=== PATIENT | male | born 1990 | race Caucasian/White ===

== ENCOUNTER 2024-06-19 08:26 | Inpatient (IN) | payer MEDICAID, OTHER ==
[~2024-06-19] VITALS: Ht 175.3 cm; Wt 74.9 kg
--- NOTE | 2024-06-19 09:09 | ED.PDOC ---
GI ASSESSMENT HPI Comments 33 year old male presents to the ED with a chief complaint of nausea/vomiting onset last night (06/18/24). Patient states he had 2 beers, ecstasy pill ans shortly after began experiencing diffused abdominal pain, nausea, vomiting, diarrhea. Rates pain 8/10. During assessment it was noticed, patient had an episode of vomiting, saliva with streaks of blood. PMHx asthma. Denies chest pain, shortness of breath, fever, chills. No other symptoms or modifying factors present at this time. Chief Complaint: Nausea/Vomiting Time Seen by MD: 08:35 Reviewed Notes: Medications, Allergies Allergies: Coded Allergies: NO KNOWN ALLERGIES (Unverified , 06/19/24) Information Source: Patient Mode of Arrival: Ambulatory Timing: Hours Duration: Since onset Prehospital treatment: None Quality: Aching Vomitus: Streaking Blood Severity: Moderate Recent: Ingestion of ETOH, Other Recent Hx of: None Pain Location: Diffuse Modifying Factors: Nothing Associated sign and symptoms: Nausea, Vomiting, Diarrhea, Hematemesis, Abdominal Pain Past Medical History PAST MEDICAL HISTORY: Asthma Surgical History: Denies all surgeries Family History Family History: Reviewed,noncontributory to illness, No family hx of Cancer, No family hx of DM, No family hx of Heart davis, No family hx of HTN, No family hx ofKidney davis, No family hx of Liver davis, No family hx of Lung davis, No family hx of Stroke Social History Smoker: Non-Smoker Alcohol: Occasionally Drugs: Other Lives In: Home Constitutional: denies: chills, diaphoresis, fatigue, fever, malaise, sweats, weakness, others EENTM: denies: blurred vision, double vision, ear bleeding, ear discharge, ear drainage, ear pain, ear ringing, eye pain, eye redness, hearing loss, mouth pain, mouth swelling, nasal discharge, nose bleeding, nose congestion, nose pain, photophobia, tearing, throat pain, throat swelling, voice changes, others Respiratory: denies: cough, hemoptysis, orthopnea, SOB at rest, shortness of breath, SOB with excertion, stridor, wheezing, others Cardiovascular: denies: chest pain, dizzy spells, diaphoresis, Dyspnea on exertion, edema, irregular heart beat, left arm pain, lightheadedness, palpitations, PND, syncope, others Gastrointestinal: reports: abdominal pain, diarrhea, nausea, vomiting; denies: abdomen distended, blood streaked bowels, constipated, dysphagia, difficulty swallowing, hematemesis, melena, poor appetite, poor fluid intake, rectal bleeding, rectal pain, others Genitourinary: denies: burning, dysuria, flank pain, frequency, hematuria, incontinence, penile discharge, penile sore, pain, testicle pain, testicle swelling, urgency, others Neurological: denies: dizziness, fainting, headache, left sided numbness, left sided weakness, numbness, paresthesia, pre-existing deficit, right sided numbness, right sided weakness, seizure, speech problems, tingling, tremors, weakness, others Musculoskeletal: denies: back pain, gout, joint pain, joint swelling, muscle pain, muscle stiffness, neck pain, others Integumetry: denies: bruises, change in color, change in hair/nails, dryness, laceration, lesions, lumps, rash, wounds, others Allergic/Immunocompromised: denies: Difficulty Healing, Frequent Infections, Hives, Itching, others Hematologic/Lymphatic: denies: anemia, blood clots, easy bleeding, easy bruising, swollen glands, others Endocrine: denies: excessive hunger, excessive sweating, excessive thirst, excessive urination, flushing, intolerance to cold, intolerance to heat, unexplained weight gain, unexplained weight loss, others Psychiatric: denies: anxiety, bipolar disorder, depression, hopeless, panic disorder, schizophrenia, sleepless, suicidal, others All Other Systems: Reviewed and Negative Physical Exam General Appearance: Moderate Distress, Normal, Other (restless) HEENT: Normal ENT Inspection, Pharynx Normal, TMs Normal Neck: Full Range of Motion, Non-Tender, Normal, Normal Inspection Respiratory: Chest Non-Tender, Lungs Clear, No Accessory Muscle Use, No Respiratory Distress, Normal Breath Sounds Cardiovascular: No Edema, No JVD, No Murmur, No Gallop, Normal Peripheral Pulses, Regular Rate/Rhythm Breast Exam: Deferred Gastrointestinal: No Organomegaly, Non Tender, No Pulsatile Mass, Normal Bowel Sounds, Soft Genitalia: Deferred Pelvic: Deferred Rectal: Deferred Extremities: No calf tenderness, Normal capillary refill, Normal inspection, Normal range of motion, Non-tender, No pedal edema Musculoskeletal : Apperance: Normal Neurologic: Alert, recordings librarian II-XII nml as Tested, No Motor Deficits, Normal Affect, Normal Mood, No Sensory Deficits Cerebellar Function: Normal Reflexes: Normal Skin: Dry, Normal Color, Warm Lymphatic: No Adenopathy Was a procedure done? Was a procedure done?: No GI differential Dx Differential Diagnosis: Appendicitis, Bowel Obstruction, Cholangitis, Cholecystitis, Constipation, Esophageal rupture, Esophagitis, Gastritis/PUD, Gastroenteritis, GI hemorrhage, Hernia, Hepatitis, Inflammatory BD, Ischemic Bowel, Pancreatitis, Dehydration, Electrolyte Imbalance, Food Poisoning, Viral, Hypovolemia, Impaction, Malnutrition, Esophageal Varicies, Stress Ulcer X-Ray, Labs, Meds, VS Vital Signs Date Time Temp Pulse Resp B/P (MAP) Pulse Ox O2 Delivery O2 Flow Rate FiO2 06/19/24 11:00 74 16 114/70 (85) 98 06/19/24 09:20 97.9 61 18 103/69 (80) 97 97.9 06/19/24 09:20 103 16 98 Room Air* 0 21 06/19/24 08:36 98.1 98 17 117/72 (87) 100 98.1 Lab Test 06/19/24 08:52 06/19/24 08:45 Range/Units White Blood Count 16.9 H 4.4-10.8 10^3/uL Red Blood Count 5.32 4.5-5.90 10^6/uL Hemoglobin 14.9 13.5-17.5 g/dL Hematocrit 44.6 41.0-53.0 % Mean Corpuscular Volume 83.9 80.0-100.0 fL Mean Corpuscular Hemoglobin 28.0 28.0-32.0 pg Mean Corpuscular Hemoglobin Concent 33.3 32.0-36.0 g/dL Red Cell Distribution Width 12.9 11.8-14.3 % Platelet Count 246 140-450 10^3/uL Mean Platelet Volume 9.7 6.9-10.8 fL Neutrophils (%) (Auto) 93.1 H 37.0-80.0 % Lymphocytes (%) (Auto) 3.5 L 10.0-50.0 % Monocytes (%) (Auto) 3.4 0.0-12.0 % Eosinophils (%) (Auto) 0.0 0.0-7.0 % Basophils (%) (Auto) 0.0 0.0-2.0 % Neutrophils # (Auto) 15.8 H 1.6-8.6 10 ^3/uL Lymphocytes # (Auto) 0.6 0.4-5.4 10 ^3/uL Monocytes # (Auto) 0.6 0-1.3 10 ^3/uL Eosinophils # (Auto) 0 0-0.8 10 ^3/uL Basophils # (Auto) 0 0-0.2 10 ^3/uL Nucleated Red Blood Cells 0.0 % Sodium Level 141 136-145 mmol/L Potassium Level 3.2 L 3.5-5.1 mmol/L Chloride Level 106 98-107 mmol/L Carbon Dioxide Level 17 L 20-31 mmol/L Anion Gap 18 H 5-15 Blood Urea Nitrogen 13 9-23 mg/dL Creatinine 1.11 0.700-1.30 mg/dL Glomerular Filtration Rate Calc 89 >90 mL/min BUN/Creatinine Ratio 11.7 10.0-20.0 Serum Glucose 192 H 74-106 mg/dL Calcium Level 10.8 H 8.7-10.4 mg/dL Lipase 34 12-53 U/L POC Glucose 192 H 70-106 mg/dl Current Medications Medications (Trade) Dose Ordered Sig/Caprice Route Start Time Stop Time Status Last Admin Ondansetron HCl (Zofran) 4 mg ONCE ONCE IV 06/19/24 08:45 06/19/24 08:46 DC 06/19/24 09:13 Sodium Chloride 1,000 ml @ 1,000 mls/hr Q1H ONCE IV 06/19/24 08:45 06/19/24 09:44 DC 06/19/24 09:13 Pantoprazole Sodium (Protonix) 40 mg ONCE ONCE IV 06/19/24 08:45 06/19/24 08:46 DC 06/19/24 09:13 Potassium Chloride (Klor-Con Tablet) 40 meq ONCE ONCE PO 06/19/24 11:30 06/19/24 11:45 DC 06/19/24 11:[address] [address] Ph: [phone] DIAGNOSTIC IMAGING Diagnostic Imaging Report : [id number] Signed PATIENT: BHARGAVI LÓPEZ ACCT: [id number] UNIT: [id number] : 1990 LOC: ER ROOM / BED: / AGE / SEX: 33 / M ADM STATUS: REG ER SERVICE ORDERING PHYSICIAN: TING SPEARS MD PROCEDURE(s): CXRP - CHEST PORTABLE REASON: vomiting ORDER NUMBER(s): [id number], ACCESSION NUMBER(s): [id number] EXAM: XR Chest, 1 View CLINICAL INDICATION: vomiting TECHNIQUE: Frontal view of the chest. COMPARISON: None FINDINGS: LUNGS AND PLEURAL SPACES: Unremarkable. No consolidation. No pneumothorax. HEART: Unremarkable. No cardiomegaly. MEDIASTINUM: Unremarkable. Normal mediastinal contour. BONES/JOINTS: Unremarkable. No acute fracture. OTHER FINDINGS: . None. IMPRESSION: No acute cardiopulmonary process. ATED BY: RAJI JACOBS MD DICTATED DATE/TIME: 06/19/24925 SIGNED BY: RAJI JACOBS MD SIGNED DATE/TIME: 06/19/24925 CC: Time of 1ST Reevaluation: 09:05 Reevaluation 1ST: Unchanged Patient Education/Counseling: Diagnosis, Treatment, Prognosis, Need For Follow Up Family Education/Counseling: No Family Present Assigned to Dr. pt is feeling improved. he states that he has a history of gastritis. he will stop drinking. he reports he has never tried drugs before yesterday, when he tried escasy and alcohol. he only drinks rarely. pt would like to go home,. his leukocytosis is likely due to demargination. ct is unremarkable Additional Information The following tests were ordered, and results were reviewed by me: CBC, BMP, LIPASE, EKG, XY CHEST Additional Information was gathered from interviewing the following independent historians: NEIGHBOR I reviewed and agreed with the following test results read by other providers: XY CHEST I discussed treatment and results with medical personnel and: Patient Departure 1 Departure Time of Disposition: 12:47 Impression: Primary Impression: Gastritis Qualified Codes: K29.20 - Alcoholic gastritis without bleeding Additional Impression: Substance abuse Disposition: HOME / SELF CARE / HOMELESS Condition: Good e-Prescriptions Ondansetron Odt 4MG Tab (ZOFRAN PO) 4 Mg Tb 4 MG PO Q4HP PRN, #10 TAB ODT TAB-DISSOLVE IN MOUTH, THEN SWALLOW Prov: TING SPEARS MD 06/19/24 Pantoprazole Sodium Sesquihydr (Protonix) 40 Mg Tab 40 MG PO DAILY, #30 TAB Prov: TING SPEARS MD 06/19/24 Discharged With: Self Critical Care Note Critical Care Time?: Yes (55 min-critical care time only) Critical care comment: Due to concerns for patients condition deteriorating, the care required my highest level of attention and readiness to intervene. I assessed the patient, reviewed the medical records, ordered the appropriate tests and treatments, then reassessed for results and responsiveness. I communicated with medical personnel and consultants and formulated a plan of care. Total critical care time excludes any procedures Stability Stability form required: No I personally scribed for TING SPEARS MD ([email or web address]) on 06/19/24 at 09:09. Electronically submitted by Pat Monge ([email or web address]). I personally scribed for TING SPEARS MD ([email or web address]) on 06/19/24 at 10:08. Electronically submitted by Pat Monge ([email or web address]). TING SPEARS MD Jun 19, 2024 09:09
[2024-06-19] MEDS: SODIUM CHLORIDE 0.9% 1,000 ML IV ONE (09:13)
[2024-06-19] MEDS: ONDANSETRON HCL 4 MG/2 ML VIAL IV ONE ×2 (09:13→12:55)
[2024-06-19] MEDS: PANTOPRAZOLE 40 MG/10 ML VIAL INJ IV ONE (09:13)
[2024-06-19 09:20] VITALS: PULSE 103; RESP 16; O2SAT 98
[2024-06-19 09:20] LABS: Chloride 106 mmol/L (98-107); Sodium 141 mmol/L (136-145)
[2024-06-19 09:21] LABS: Anion Gap 18 (5-15)
[2024-06-19 09:26] LABS: BUN/Creatinine Ratio 11.7 (10.0-20.0); Blood Urea Nitrogen 13 mg/dL (9-23); Calcium 10.8 mg/dL (8.7-10.4); Carbon Dioxide 17 mmol/L (20-31); Potassium 3.2 mmol/L (3.5-5.1)
[2024-06-19 09:27] LABS: Glucose 192 mg/dL (74-106)
--- NOTE | 2024-06-19 09:28 | DVH ---
EXAM: XR Chest, 1 View CLINICAL INDICATION: vomiting TECHNIQUE: Frontal view of the chest. COMPARISON: None FINDINGS: LUNGS AND PLEURAL SPACES: Unremarkable. No consolidation. No pneumothorax. HEART: Unremarkable. No cardiomegaly. MEDIASTINUM: Unremarkable. Normal mediastinal contour. BONES/JOINTS: Unremarkable. No acute fracture. OTHER FINDINGS: . None. IMPRESSION: No acute cardiopulmonary process.
[2024-06-19 10:12] LABS: Lipase 34 U/L (12-53)
[2024-06-19 10:36] LABS: Basophils # (auto) 0 10 ^3/uL (0-0.2); Eosinophils # (auto) 0 10 ^3/uL (0-0.8); Hematocrit 44.6 % (41.0-53.0); Hemoglobin 14.9 g/dL (13.5-17.5); Lymphocytes # (auto) 0.6 10 ^3/uL (0.4-5.4); Lymphocytes % (auto) 3.5 % (10.0-50.0); Mean Corpuscular Hgb Conc. 33.3 g/dL (32.0-36.0); Mean Corpuscular Volume 83.9 fL (80.0-100.0); Monocytes # (auto) 0.6 10 ^3/uL (0-1.3); Monocytes % (auto) 3.4 % (0.0-12.0); Neutrophils # (auto) 15.8 10 ^3/uL (1.6-8.6); Neutrophils % (auto) 93.1 % (37.0-80.0); Platelet Count (auto) 246 10^3/uL (140-450); Red Blood Cells 5.32 10^6/uL (4.5-5.90); Red Cell Distribution Width 12.9 % (11.8-14.3); White Blood Cell 16.9 10^3/uL (4.4-10.8)
--- NOTE | 2024-06-19 11:36 | DVH ---
CT CT AB PEL WO CON-NO ORAL OR IV INDICATION: pain, vomiting EXAM DATE: 06/19/2024 10:52 AM COMPARISON: None RADIATION DOSE: CTDIvol: 10.09 mGy, DLP: 503.33 mGy*cm PROCEDURE: Helical CT images were obtained of the abdomen and pelvis without IV contrast Sagittal and coronal reconstructions are provided. ORAL CONTRAST: None. ADDITIONAL IMAGES / REFORMATS: None All C T scans at this medical facility are performed using dose modulation techniques as appropriate to a p erformed exam including the following: Automated exposure control was utilized; adjustment of the MA and/or KV according to patient size; and use of iterative reconstruction technique. FINDINGS: LUNG BASE: 1.0 cm cavitary right lower pulmonary nodule. LIVER: Normal. GALLBLADDER AND BILIARY TREE: No calcified gallstones. Normal caliber wall. No intra- or extrahepatic biliary ductal dilation. PANCREAS: Normal. SPLEEN: Normal. BOWEL: Normal. Appendix is prominent in diameter but normal. ADRENALS: Normal. KIDNEYS AND URETER: Normal. BLADDER: Normal. REPRODUCTIVE ORGANS: Normal. LYMPH NODES:No lymphadenopathy. PERITONEUM: No ascites or free air. No other fluid collection. VESSELS: Scattered atherosclerotic calcifications are noted. RETROPERITONEUM: Normal. ABDOMINAL WALL: Normal. BONES: Scattered osseous degenerative changes are noted. IMPRESSION: No acute intraabdominal abnormality. 1.0 cm cavitary right lower pulmonary nodule could be pneumonia.
[2024-06-19] MEDS: POTASSIUM CHL 20 Meq TABLET PO ONE (11:49)
[2024-06-19] MEDS ORDERED: ZOFR4T PO (12:48)
[2024-06-19] MEDS ORDERED: PANT40TA2 PO (12:48)
[2024-06-19] MEDS: SODIUM CHLORIDE 0.9% 1,000 ML IV SCH (15:30)
[2024-06-19] MEDS ORDERED: MORPHINE SULFATE INJ 2 MG/ml SYRG IV PRN (15:30)
[2024-06-19] MEDS ORDERED: DEXTROSE (50%) 50ML SYRG IV PRN (15:30)
[2024-06-19] MEDS ORDERED: ACETAMINOPHEN 325 MG TAB PO PRN (15:30)
[2024-06-19] MEDS ORDERED: IPRATROPIUM BROM 0.5 MG/2.5ML INH SOL NEB PRN (15:30)
[2024-06-19] MEDS ORDERED: ALBUTEROL SULF 2.5 MG/0.5ML(0.5%) NEB SOLN NEB PRN (15:30)
[2024-06-19] MEDS ORDERED: HYDROcodone-ACET 5/325MG TAB PO PRN (15:30)
--- NOTE | 2024-06-19 15:55 | DVHHP2 ---
History of Present Illness Reason for Visit: Abdominal pain History of Present Illness Ángel Balderrama is a 33-year-old male with past medical history of asthma, adenoid removal, left leg surgery, and bilateral ankle surgery who presents to the ED for abdominal pain with nausea, vomiting, and diarrhea x1 day. Patient reports that the emesis is dark bloody and started last night. He also reports the pain is 8/10 constant and aching. Patient reported that he drank 2-1/2 beers last night with an ecstasy pill called Michael. Patient reports that he is from [facility] and currently staying in an AirBNB and next week he states that he will move into his new apartment. Patient also reports that he drinks oc casionally and smokes THC as well as use ecstasy. Patient denies any chest pain, recent trauma or injury, recent illnesses, fever chills, lightheadedness, weakness, dizziness, headache, chest pain, shortness of breath, tingling, numbness, paresthesia. When I asked the patient about his diarrhea what color it was he states that he did not look. Pulmonary: Asthma Past Surgical History: Other (Adenoid removal, left leg surgery, and bilateral ankle surgery) Family History: Cancer, Other (Grandfather with throat cancer) Smoke: <1 pack per day (THC) ALCOHOL: occassional Drugs: Other (Ecstasy) Lives: Alone Domestic Violence: Neg Review of Systems Gastrointestinal: Nausea, Vomiting, Abdominal Pain, Diarrhea, Other (Hematemesis) Allergies: Coded Allergies: NO KNOWN ALLERGIES (Unverified , 06/19/24) Medications Current Medications Medications Dose Ordered Sig/Caprice Route Start Time Stop Time Status Last Admin Dose Admin Sodium Chloride 1,000 ml @ 100 mls/hr Q10H IV 06/19/24 15:30 UNV Diagnostic Test (Pha) 1 strip ACHS 06/19/24 17:00 UNV Insulin Human Regular ACHS SC 06/19/24 17:00 UNV Dextrose 50 ml UD PRN IV 06/19/24 15:30 UNV Piperacillin Sod/ Tazobactam Sod 100 ml @ 25 mls/hr Q8HR IV 06/19/24 22:00 UNV Acetaminophen/ Hydrocodone Bitart 1 tab Q4HP PRN PO 06/19/24 15:30 UNV Ondansetron HCl 4 mg Q4HP PRN IV 06/19/24 15:30 UNV Acetaminophen 650 mg Q6HP PRN PO 06/19/24 15:30 UNV Morphine Sulfate 2 mg Q4HPRN PRN IV 06/19/24 15:30 UNV Albuterol 2.5 mg Q4HPRN PRN NEB 06/19/24 15:30 UNV Ipratropium [place] 0.5 mg Q4HPRN PRN NEB 06/19/24 15:30 UNV Exam Vital Signs Vital Signs Date Time Temp Pulse Resp B/P (MAP) Pulse Ox O2 Delivery O2 Flow Rate FiO2 06/19/24 14:00 70 18 136/63 (87) 96 06/19/24 09:20 97.9 97.9 06/19/24 09:20 Room Air* 0 21 General Appearance: Alert, Oriented X3, Cooperative, No acute distress HEENT: Atraumatic, PERRLA, EOMI, Mucous membr. moist/pink Respiratory: Normal air movement Cardiovascular: Normal S1, Normal S2 Abdominal: Soft Extremities: No cyanosis, No edema Skin: No significant lesion Neuro: Normal speech, Strength at 5/5 X4 ext, Normal tone, Sensation intact Psych/Mental Status: Mental status NL, Mood NL Labs/Xrays Labs Test 06/19/24 08:52 06/19/24 08:45 Range/Units White Blood Count 16.9 H 4.4-10.8 10^3/uL Red Blood Count 5.32 4.5-5.90 10^6/uL Hemoglobin 14.9 13.5-17.5 g/dL Hematocrit 44.6 41.0-53.0 % Mean Corpuscular Volume 83.9 80.0-100.0 fL Mean Corpuscular Hemoglobin 28.0 28.0-32.0 pg Mean Corpuscular Hemoglobin Concent 33.3 32.0-36.0 g/dL Red Cell Distribution Width 12.9 11.8-14.3 % Platelet Count 246 140-450 10^3/uL Mean Platelet Volume 9.7 6.9-10.8 fL Neutrophils (%) (Auto) 93.1 H 37.0-80.0 % Lymphocytes (%) (Auto) 3.5 L 10.0-50.0 % Monocytes (%) (Auto) 3.4 0.0-12.0 % Eosinophils (%) (Auto) 0.0 0.0-7.0 % Basophils (%) (Auto) 0.0 0.0-2.0 % Neutrophils # (Auto) 15.8 H 1.6-8.6 10 ^3/uL Lymphocytes # (Auto) 0.6 0.4-5.4 10 ^3/uL Monocytes # (Auto) 0.6 0-1.3 10 ^3/uL Eosinophils # (Auto) 0 0-0.8 10 ^3/uL Basophils # (Auto) 0 0-0.2 10 ^3/uL Nucleated Red Blood Cells 0.0 % Sodium Level 141 136-145 mmol/L Potassium Level 3.2 L 3.5-5.1 mmol/L Chloride Level 106 98-107 mmol/L Carbon Dioxide Level 17 L 20-31 mmol/L Anion Gap 18 H 5-15 Blood Urea Nitrogen 13 9-23 mg/dL Creatinine 1.11 0.700-1.30 mg/dL Glomerular Filtration Rate Calc 89 >90 mL/min BUN/Creatinine Ratio 11.7 10.0-20.0 Serum Glucose 192 H 74-106 mg/dL Calcium Level 10.8 H 8.7-10.4 mg/dL Lipase 34 12-53 U/L POC Glucose 192 H 70-106 mg/dl CT CT AB PEL WO CON-NO ORAL OR IV INDICATION: pain, vomiting EXAM DATE: 06/19/2024 10:52 AM COMPARISON: None RADIATION DOSE: CTDIvol: 10.09 mGy, DLP: 503.33 mGy*cm PROCEDURE: Helical CT images were obtained of the abdomen and pelvis without IV contrast Sagittal and coronal reconstructions are provided. ORAL CONTRAST: None. ADDITIONAL IMAGES / REFORMATS: None All CT scans at this medical facility are performed using dose modulation techniques as appropriate to a performed exam including the following: Automated exposure control was utilized; adjustment of the MA and/or KV according to patient size; and use of iterative reconstruction technique. FINDINGS: LUNG BASE: 1.0 cm cavitary right lower pulmonary nodule. LIVER: Normal. GALLBLADDER AND BILIARY TREE: No calcified gallstones. Normal caliber wall. No intra- or extrahepatic biliary ductal dilation. PANCREAS: Normal. SPLEEN: Normal. BOWEL: Normal. Appendix is prominent in diameter but normal. ADRENALS: Normal. KIDNEYS AND URETER: Normal. BLADDER: Normal. REPRODUCTIVE ORGANS: Normal. LYMPH NODES:No lymphadenopathy. PERITONEUM: No ascites or free air. No other fluid collection. VESSELS: Scattered atherosclerotic calcifications are noted. RETROPERITONEUM: Normal. ABDOMINAL WALL: Normal. BONES: Scattered osseous degenerative changes are noted. IMPRESSION: No acute intraabdominal abnormality. 1.0 cm cavitary right lower pulmonary nodule could be pneumonia. EXAM: XR Chest, 1 View CLINICAL INDICATION: vomiting TECHNIQUE: Frontal view of the chest. COMPARISON: None FINDINGS: LUNGS AND PLEURAL SPACES: Unremarkable. No consolidation. No pneumothorax. HEART: Unremarkable. No cardiomegaly. MEDIASTINUM: Unremarkable. Normal mediastinal contour. BONES/JOINTS: Unremarkable. No acute fracture. OTHER FINDINGS: . None. IMPRESSION: No acute cardiopulmonary process. Assessment/Plan Assessment/Plan Assessment Intractable back pain with nausea and vomiting Rule out GI bleed Hematemesis Hypokalemia Leukocytosis rule out sepsis 1.0 cm cavitary right lower pulmonary nodule could be pneumonia. Hyperglycemia History of asthma History of adenoid removal History of left leg surgery History of bilateral ankle surgery Plan Admit to [facility] Clear liquids IV antibiotics-ceftriaxone + Zosyn Replete lytes Hemoglobin A1c ISS and Accu-Cheks ESR Lactic Blood cultures and urine cultures CT abdomen and pelvis noted Antiemetics PPIs NS 1 L given ED Chest x-ray EKG Lipase UA IV fluids DVT prophylaxis- SCDs Duo nebs Rounding team to decide if Pulmonary consult warranted for possible nodule PUD prophylaxis Discussed plan of care with patient and nurse Home medications reconciled Plan discussed with: Patient My Orders Orders - SERA BURROUGHS [employer] Procedure Category Date Status Time * [facility] [employer] Supervisor CONS 06/19/24 Transmitted 15:29 Sodium Chloride 0.9% PHA 06/19/24 Logged 15:30 Hemoglobin A1c LAB 06/19/24 Transmitted 15:29 Glucose Blood PHA 06/19/24 Logged (Accu-Chek Comfort 17:00 Insulin R (Human) PHA 06/19/24 Logged (Insulin R) 17:00 Dextrose 50% Syringe PHA 06/19/24 Logged 15:30 Piperacillin-Tazob PHA 06/19/24 Logged 3.375gm (Zosyn 3.375g 22:00 Piperacillin-Tazob PHA 06/19/24 Logged 3.375gm (Zosyn 3.375g 15:30 Urinalysis LAB 06/19/24 Transmitted 15:29 Stool Occult Blood LAB 06/19/24 Transmitted 15:29 Clear Liq Diet DIET 06/19/24 Transmitted Dinner Admit ADMIT 06/19/24 Transmitted 15:29 Allergies VAL 06/19/24 In Process 15:29 Code Status CODE 06/19/24 Transmitted 15:29 Hydrocodone-Acet PHA 06/19/24 Transmitted 5/325mg Tab ([place] 15:30 Ondansetron Hcl PHA 06/19/24 Transmitted (Zofran) 15:30 Complete Blood Count LAB 06/20/24 Verified 04:00 Comprehensive LAB 06/20/24 Verified Metabolic Panel 04:00 Acetaminophen Tablet PHA 06/19/24 Transmitted (Tylenol Tablet) 15:30 Morphine Sulfate PHA 06/19/24 Transmitted Injection 15:30 Sequential VAL 06/19/24 In Process Compression Device Albuterol Medneb PHA 06/19/24 Transmitted (Ventolin Medneb) 15:30 Ipratropium Medneb PHA 06/19/24 Transmitted (Atrovent Medneb) 15:30 Date of Service: Jun 19, 2024 Billing Provider: SERA BURROUGHS Common Visit Codes: 03233-KOGARIZ INP/OBS CARE (HIGH) SERA BURROUGHS Jun 19, 2024 15:55
--- NOTE | 2024-06-19 16:21 | DVHINCON2 ---
Date of service: Jun 19, 2024 Referring Physician Reggie Reason for Consultation Abdominal pain Nausea vomiting Hematemesis History of Present Illness Patient is a 33-year-old male with no significant past medical history other than gastritis admitted with nausea, vomiting, abdominal pain and blood-streaked emesis. Patient has a history of gastritis. Last had an endoscopy several months ago. He denies any fevers or chills. He has had weight loss. Patient states that he took one pill of ecstasy and had two beers. He has been losing weight as he has not been eating. GI consultation was obtained for hematemesis Past Medical History As above Past Surgical History Denies Family History No gastrointestinal diseases or malignancies Social History Alcohol and drug use see HPI Allergies: Coded Allergies: NO KNOWN ALLERGIES (Unverified , 06/19/24) Home Meds Active Scripts Ondansetron Odt 4MG Tab (ZOFRAN PO) 4 Mg Tb, 4 MG PO Q4HP PRN, #10 TAB ODT TAB-DISSOLVE IN MOUTH, THEN SWALLOW Prov:TING SPEARS MD 06/19/24 Pantoprazole Sodium Sesquihydr (Protonix) 40 Mg Tab, 40 MG PO DAILY, #30 TAB Prov:TING SPEARS MD 06/19/24 Current Medications Current Medications Medications (Trade) Dose Ordered Sig/Caprice Route PRN Reason Start Time Stop Time Status Last Admin Sodium Chloride 1,000 ml @ 100 mls/hr Q10H IV 06/19/24 15:30 Diagnostic Test (Pha) (Accu-Chek Comfort Curve T) 1 strip ACHS 06/19/24 17:00 Insulin Human Regular (InsuLIN R) ACHS SC 06/19/24 17:00 Dextrose 50 ml UD PRN IV Blood Sugar LESS THAN 60 06/19/24 15:30 Piperacillin Sod/ Tazobactam Sod 100 ml @ 25 mls/hr Q8HR IV 06/19/24 22:00 UNV Acetaminophen/ Hydrocodone Bitart ([place] 5/325MG Tab) 1 tab Q4HP PRN PO MODERATE PAIN (4-6 PAIN SCALE) 06/19/24 15:30 Ondansetron HCl (Zofran) 4 mg Q4HP PRN IV NAUSEA / VOMITING 06/19/24 15:30 Acetaminophen (Tylenol Tablet) 650 mg Q6HP PRN PO PAIN SCALE 1-3 OR TEMP>100.4 06/19/24 15:30 Morphine Sulfate 2 mg Q4HPRN PRN IV SEVERE PAIN (7-10 PAIN SCALE) 06/19/24 15:30 Albuterol (Ventolin Medneb) 2.5 mg Q4HPRN PRN NEB SHORTNESS OF BREATH 06/19/24 15:30 Ipratropium [place] (Atrovent Medneb) 0.5 mg Q4HPRN PRN NEB SHORTNESS OF BREATH 06/19/24 15:30 Pantoprazole Sodium (Protonix Tablet) 40 mg DAILY PO 06/20/24 10:00 Ceftriaxone Sodium 50 ml @ 100 mls/hr DAILY@ IV 06/20/24 09:00 UNV Review of Systems 12 point review of systems as per HPI Vital Signs Vital Signs Date Time Temp Pulse Resp B/P (MAP) Pulse Ox O2 Delivery O2 Flow Rate FiO2 06/19/24 14:00 70 18 136/63 (87) 96 06/19/24 09:20 97.9 97.9 06/19/24 09:20 Room Air* 0 21 Physical Exam General: Alert and oriented x4 no distress HEENT: NC/AT EOMI PERRLA O/P clear Heart: Regular rate and rhythm Abdomen: Soft nontender nondistended Extremity: No clubbing cyanosis or edema Labs/Diagnostic Data Labs Test 06/19/24 08:52 06/19/24 08:45 Range/Units White Blood Count 16.9 H 4.4-10.8 10^3/uL Red Blood Count 5.32 4.5-5.90 10^6/uL Hemoglobin 14.9 13.5-17.5 g/dL Hematocrit 44.6 41.0-53.0 % Mean Corpuscular Volume 83.9 80.0-100.0 fL Mean Corpuscular Hemoglobin 28.0 28.0-32.0 pg Mean Corpuscular Hemoglobin Concent 33.3 32.0-36.0 g/dL Red Cell Distribution Width 12.9 11.8-14.3 % Platelet Count 246 140-450 10^3/uL Mean Platelet Volume 9.7 6.9-10.8 fL Neutrophils (%) (Auto) 93.1 H 37.0-80.0 % Lymphocytes (%) (Auto) 3.5 L 10.0-50.0 % Monocytes (%) (Auto) 3.4 0.0-12.0 % Eosinophils (%) (Auto) 0.0 0.0-7.0 % Basophils (%) (Auto) 0.0 0.0-2.0 % Neutrophils # (Auto) 15.8 H 1.6-8.6 10 ^3/uL Lymphocytes # (Auto) 0.6 0.4-5.4 10 ^3/uL Monocytes # (Auto) 0.6 0-1.3 10 ^3/uL Eosinophils # (Auto) 0 0-0.8 10 ^3/uL Basophils # (Auto) 0 0-0.2 10 ^3/uL Nucleated Red Blood Cells 0.0 % Sodium Level 141 136-145 mmol/L Potassium Level 3.2 L 3.5-5.1 mmol/L Chloride Level 106 98-107 mmol/L Carbon Dioxide Level 17 L 20-31 mmol/L Anion Gap 18 H 5-15 Blood Urea Nitrogen 13 9-23 mg/dL Creatinine 1.11 0.700-1.30 mg/dL Glomerular Filtration Rate Calc 89 >90 mL/min BUN/Creatinine Ratio 11.7 10.0-20.0 Serum Glucose 192 H 74-106 mg/dL Hemoglobin A1c 5.2 <5.7 % A1C Calcium Level 10.8 H 8.7-10.4 mg/dL Lipase 34 12-53 U/L POC Glucose 192 H 70-106 mg/dl IMPRESSION: No acute intraabdominal abnormality. 1.0 cm cavitary right lower pulmonary nodule could be pneumonia. Assessment 1. Abdominal pain 2. Nausea and vomiting 3. Blood streaked emesis Problems(with codes): (1) Substance abuse (2) Gastritis (3) Leukocytosis (4) Intractable nausea and vomiting Plan/Recommendation 1. Antiemetics 2. Clear liquid diet as tolerated 3. Supportive care 4. Proton pump inhibitor therapy 5. Hold off on EGD at this time Plan discussed with: Patient GONZALEZ GAN MD Jun 19, 2024 16:21
[2024-06-19] MEDS: PIPERACILLIN-TAZOB 3.375GM 100 ML IV ONE (16:42)
[2024-06-19] MEDS: InsuLIN REG 1unit/0.01ml Soln (100units/ml) SC SCH (17:00)
[2024-06-19] MEDS: cefTRIAXone 1GM/50ML D5W 50 ML IV ONE (17:03)
[2024-06-19] MEDS: ACCU-CHEK COMFORT CURVE STRIP VI SCH (17:26)
[2024-06-19] MEDS: ONDANSETRON HCL 4 MG/2 ML VIAL IV PRN (17:35)
[2024-06-19 17:41] LABS: Erythrocyte Sedimentation Rate 3 mm/hr (0-20)
[2024-06-19 19:28] VITALS: PULSE 64; RESP 16; O2SAT 95
[2024-06-19 22:00] VITALS: PULSE 58; RESP 16; O2SAT 98
[2024-06-19 22:07] VITALS: BP 128/68; PULSE 67; RESP 18; TEMP 98.9; O2SAT 98
[2024-06-19 22:18] VITALS: PULSE 67; RESP 18; O2SAT 98
[2024-06-19 22:24] VITALS: BP 128/68; PULSE 72; RESP 16; TEMP 98.9; O2SAT 100
[2024-06-19] MEDS: PIPERACILLIN-TAZOB 3.375GM 100 ML IV SCH (22:25)
[2024-06-19 23:09] LABS: Urine Bacteria None Seen /hpf (None Seen)
[2024-06-19 23:18] LABS: Urine Blood Negative /uL (Negative); Urine Clarity Clear (Clear); Urine Color Yellow (Yellow); Urine Protein, UAD TRACE (Negative); Urine Specific Gravity 1.032 (1.001-1.035); Urine Squamous Epithelial Cell None Seen /hpf (<5); Urine Urobilinogen Normal (Negative); Urine WBC 1 /HPF (0-3); Urine pH 6.5 (5.0-9.0)
[2024-06-20] VITALS (7 sets, daily range): BP systolic 103–123; BP diastolic 55–65; PULSE 51–81; RESP 16–20; TEMP 98–98.2; O2SAT 97–99
[2024-06-20 07:17] LABS: Basophils # (auto) 0 10 ^3/uL (0-0.2); Basophils % (auto) 0.1 % (0.0-2.0); Eosinophils # (auto) 0 10 ^3/uL (0-0.8); Hematocrit 40.9 % (41.0-53.0); Hemoglobin 13.7 g/dL (13.5-17.5); Lymphocytes # (auto) 1.2 10 ^3/uL (0.4-5.4); Lymphocytes % (auto) 6.9 % (10.0-50.0); Mean Corpuscular Hemoglobin 28.4 pg (28.0-32.0); Mean Corpuscular Hgb Conc. 33.5 g/dL (32.0-36.0); Mean Corpuscular Volume 84.5 fL (80.0-100.0); Monocytes # (auto) 1.5 10 ^3/uL (0-1.3); Monocytes % (auto) 8.4 % (0.0-12.0); Neutrophils # (auto) 14.9 10 ^3/uL (1.6-8.6); Neutrophils % (auto) 84.6 % (37.0-80.0); Nucleated Red Blood Cells % 0.1 %; Platelet Count (auto) 209 10^3/uL (140-450); Red Blood Cells 4.83 10^6/uL (4.5-5.90); Red Cell Distribution Width 13.2 % (11.8-14.3); White Blood Cell 17.6 10^3/uL (4.4-10.8)
[2024-06-20 07:45] LABS: Alanine Aminotransferase 17 U/L (7-40); Albumin 4.6 g/dL (3.2-4.8); Alkaline Phosphatase 47 U/L (46-116); Anion Gap 13 (5-15); Aspartate Aminotransferase 22 U/L (13-40); BUN/Creatinine Ratio 11.3 (10.0-20.0); Bilirubin, Total 1.1 mg/dL (0.2-1.0); Blood Urea Nitrogen 12 mg/dL (9-23); Carbon Dioxide 25 mmol/L (20-31); Chloride 106 mmol/L (98-107); Sodium 144 mmol/L (136-145); Total Protein 7.3 g/dL (5.7-8.2)
[2024-06-20 07:48] LABS: Glucose 129 mg/dL (74-106); Potassium 3.4 mmol/L (3.5-5.1)
[2024-06-20] MEDS: PANTOPRAZOLE 40 MG TAB PO SCH (10:36)
[2024-06-20] MEDS: cefTRIAXone 1GM/50ML D5W 50 ML IV SCH (10:37)
--- NOTE | 2024-06-20 15:38 | PRN ---
Misceleneous Note Note Note June 10, 2024 Subjective: Patient is not having any bleeding here he is feeling better. Current Medications Medications (Trade) Dose Ordered Sig/Caprice Route PRN Reason Start Time Stop Time Status Last Admin Diagnostic Test (Pha) (Accu-Chek Comfort Curve T) 1 strip ACHS 06/19/24 17:00 06/20/24 06:18 Insulin Human Regular (InsuLIN R) ACHS SC 06/19/24 17:00 Piperacillin Sod/ Tazobactam Sod 100 ml @ 25 mls/hr Q8HR IV 06/19/24 22:00 06/20/24 14:01 Pantoprazole Sodium (Protonix Tablet) 40 mg DAILY PO 06/20/24 10:00 06/20/24 10:36 Ceftriaxone Sodium 50 ml @ 100 mls/hr DAILY@09 IV 06/20/24 09:00 06/20/24 10:37 Vital Signs Date Time Temp Pulse Resp B/P (MAP) Pulse Ox O2 Delivery O2 Flow Rate FiO2 06/20/24 13:00 98.0 58 20 112/65 (81) 98 98.0 06/20/24 08:00 Room Air* 0 21 Physical exam : Alert and oriented x4 Regular rate and rhythm Soft nontender nondistended abdomen No clubbing cyanosis or edema Labs Test 06/20/24 06:51 06/20/24 06:17 06/19/24 22:32 06/19/24 16:14 Range/Units White Blood Count 17.6 H 4.4-10.8 10^3/uL Red Blood Count 4.83 4.5-5.90 10^6/uL Hemoglobin 13.7 13.5-17.5 g/dL Hematocrit 40.9 L 41.0-53.0 % Mean Corpuscular Volume 84.5 80.0-100.0 fL Mean Corpuscular Hemoglobin 28.4 28.0-32.0 pg Mean Corpuscular Hemoglobin Concent 33.5 32.0-36.0 g/dL Red Cell Distribution Width 13.2 11.8-14.3 % Platelet Count 209 140-450 10^3/uL Mean Platelet Volume 9.2 6.9-10.8 fL Neutrophils (%) (Auto) 84.6 H 37.0-80.0 % Lymphocytes (%) (Auto) 6.9 L 10.0-50.0 % Monocytes (%) (Auto) 8.4 0.0-12.0 % Eosinophils (%) (Auto) 0.0 0.0-7.0 % Basophils (%) (Auto) 0.1 0.0-2.0 % Neutrophils # (Auto) 14.9 H 1.6-8.6 10 ^3/uL Lymphocytes # (Auto) 1.2 0.4-5.4 10 ^3/uL Monocytes # (Auto) 1.5 H 0-1.3 10 ^3/uL Eosinophils # (Auto) 0 0-0.8 10 ^3/uL Basophils # (Auto) 0 0-0.2 10 ^3/uL Nucleated Red Blood Cells 0.1 % Sodium Level 144 136-145 mmol/L Potassium Level 3.4 L 3.5-5.1 mmol/L Chloride Level 106 98-107 mmol/L Carbon Dioxide Level 25 20-31 mmol/L Anion Gap 13 5-15 Blood Urea Nitrogen 12 9-23 mg/dL Creatinine 1.06 0.700-1.30 mg/dL Glomerular Filtration Rate Calc 94 >90 mL/min BUN/Creatinine Ratio 11.3 10.0-20.0 Serum Glucose 129 H 74-106 mg/dL Calcium Level 10.0 8.7-10.4 mg/dL Total Bilirubin 1.1 H 0.2-1.0 mg/dL Aspartate Amino Transferase (AST) 22 13-40 U/L Alanine Aminotransferase (ALT) 17 7-40 U/L Alkaline Phosphatase 47 46-116 U/L Total Protein 7.3 5.7-8.2 g/dL Albumin 4.6 3.2-4.8 g/dL POC Glucose 140 H 70-106 mg/dl Urine Color Yellow Yellow Urine Clarity Clear Clear Urine pH 6.5 5.0-9.0 Urine Specific [place] 1.032 1.001-1.035 Urine Protein Trace H Negative Urine Ketones 3+ H Negative Urine Blood Negative Negative /uL Urine Nitrite Negative Negative Urine Bilirubin Negative Negative Urine Urobilinogen Normal Negative mg/dL Urine Leukocyte Esterase Negative Negative /uL Urine RBC 1 0 - 3 /hpf Urine Microscopic WBC 1 0-3 /HPF Urine Squamous Epithelial Cells None seen <5 /hpf Urine Bacteria None seen None Seen /hpf Urine Glucose 1+ H Normal mg/dL Lactic Acid Level 1.4 0.4-2.0 mmol/L Test 06/19/24 08:52 Range/Units Erythrocyte Sedimentation Rate 3 0-20 mm/hr Hemoglobin A1c 5.2 <5.7 % A1C Lipase 34 12-53 U/L Impression: Abd pain Nausea and vomiting Hematemesis History of GI bleed Recommendations: 1. Continue with Protonix 2. Discharge home with outpatient follow up in EGD 3. EtOH and drug abuse counseling should be given 4. Follow electrolytes and replace 5. Continue with antibiotics at this time GONZALEZ GAN MD Jun 20, 2024 15:38
--- NOTE | 2024-06-20 17:17 | MEDREC ---
[facility] Intervention Section I [facility] Intervention: Duplication of therapy (PLEASE CONSIDER D/C CEFTRIAXONE OR ZOSYN (DUPLICATION OF THERAPY)) MOSES FELTON PHARMACIST Jun 20, 2024 17:17
--- NOTE | 2024-06-20 23:01 | DVHPN2 ---
Subjective The patient is seen and examined at bedside. The patient feel better. No hematemesis today. Patient said he had been coughing blood on and off. Reviewed: Care Plan, H&P, Labs, Medications, Previous Orders, Radiology Changes from previous H/P or p: No Changes Gastrointestinal: Nausea, Vomiting, Abdominal Pain, Diarrhea, Other (Hematemesis) Objective Vitals Vital Signs Date Time Temp Pulse Resp B/P (MAP) Pulse Ox O2 Delivery O2 Flow Rate FiO2 06/20/24 19:30 81 17 Room Air* 0 21 06/20/24 17:00 98.2 123/60 (81) 97 98.2 Intake/Output Intake and Output 06/20/24 07:00 Intake Total 800 ml Output Total 550 ml Balance 250 ml Intake Oral 100 ml IV Total 700 ml Output Urine Total 100 ml Emesis 450 ml General Appearance: Alert, Oriented X3, Cooperative, No acute distress HEENT: Atraumatic, PERRLA, EOMI, Mucous membr. moist/pink Neck: Supple Lungs: Clear to auscultation, Normal air movement Cardiovascular: Regular rate, Normal S1, Normal S2, No murmurs, Gallops, Rubs Abdomen: Normal bowel sounds, Soft, No tenderness Neuro: Cranial nerves 3-12 NL Psych/Mental Status: Mental status NL Medications Current Medications Medications Dose Ordered Sig/Caprice Route Start Time Stop Time Status Last Admin Dose Admin Sodium Chloride 1,000 ml @ 100 mls/hr Q10H IV 06/19/24 15:30 06/20/24 11:30 100 MLS/HR Diagnostic Test (Pha) 1 strip ACHS 06/19/24 17:00 06/20/24 06:18 1 STRIP Insulin Human Regular ACHS SC 06/19/24 17:00 Dextrose 50 ml UD PRN IV 06/19/24 15:30 Piperacillin Sod/ Tazobactam Sod 100 ml @ 25 mls/hr Q8HR IV 06/19/24 22:00 06/20/24 14:01 25 MLS/HR Acetaminophen/ Hydrocodone Bitart 1 tab Q4HP PRN PO 06/19/24 15:30 Ondansetron HCl 4 mg Q4HP PRN IV 06/19/24 15:30 06/20/24 10:37 4 MG Acetaminophen 650 mg Q6HP PRN PO 06/19/24 15:30 Morphine Sulfate 2 mg Q4HPRN PRN IV 06/19/24 15:30 Albuterol 2.5 mg Q4HPRN PRN NEB 06/19/24 15:30 Ipratropium [place] 0.5 mg Q4HPRN PRN NEB 06/19/24 15:30 Pantoprazole Sodium 40 mg DAILY PO 06/20/24 10:00 06/20/24 10:36 40 MG Ceftriaxone Sodium 50 ml @ 100 mls/hr DAILY@09 IV 06/20/24 09:00 06/20/24 10:37 100 MLS/HR Laboratory Results Laboratory Tests 06/20/24 06:51 Chemistry Test 06/20/24 06:51 Albumin 4.6 g/dL (3.2-4.8) Calcium Level 10.0 mg/dL (8.7-10.4) Total Protein 7.3 g/dL (5.7-8.2) LFT Test 06/20/24 06:51 Alanine Aminotransferase (ALT) 17 U/L (7-40) Alkaline Phosphatase 47 U/L (46-116) Aspartate Amino Transferase (AST) 22 U/L (13-40) Total Bilirubin 1.1 mg/dL (0.2-1.0) H Urinalysis Test 06/19/24 22:32 Urine Color Yellow (Yellow) Urine Clarity Clear (Clear) Urine pH 6.5 (5.0-9.0) Urine Specific [place] 1.032 (1.001-1.035) Urine Protein Trace (Negative) H Urine Ketones 3+ (Negative) H Urine Blood Negative /uL (Negative) Urine Nitrite Negative (Negative) Urine Bilirubin Negative (Negative) Urine Urobilinogen Normal mg/dL (Negative) Urine Leukocyte Esterase Negative /uL (Negative) Urine RBC 1 /hpf (0 - 3) Urine Microscopic WBC 1 /HPF (0-3) Urine Squamous Epithelial Cells None seen /hpf (<5) Urine Bacteria None seen /hpf (None Seen) Urine Glucose 1+ mg/dL (Normal) H Microbiology Microbiology Date/Time Source Procedure Growth Status 06/19/24 16:14 Blood Blood Culture - Preliminary NO GROWTH AFTER 24 HOURS OF INCUBATION. Resulted Labs and/or images reviewed: Labs reviewed by me Assessment/Plan Assessment/Plan Intractable back pain with nausea and vomiting Rule out GI bleed Hematemesis Hypokalemia Leukocytosis rule out sepsis 1.0 cm cavitary right lower pulmonary nodule could be pneumonia. Hyperglycemia History of asthma History of adenoid removal History of left leg surgery History of bilateral ankle surgery Plan Continuing current management. We will DC ceftriaxone and continuing IV antibiotics Zosyn. Because the patient was immigrated here from [facility] recently, he had a cavitation on the right lower lung with hematemesis I will check Ming TB QuantiFERON. Appreciate GI specialist input Educated regarding to drug use, ecstasy in length. We will follow up with cultures This medical document was created using an electronic medical record system with [employer] direct computerized dictation system. Although this document has been carefully reviewed, there may still be some phonetic and typographical errors. These areas are purely typographical due to imperfections of the software programs, and do not reflect any compromise in the patient's medical care. Plan discussed with: Patient My Orders Orders - SHAKA AL MD Procedure Category Date Status Time Quantiferon-Tb Gold LAB 06/20/24 In Process 15:22 Date of Service: Jun 20, 2024 Billing Provider: SHAKA AL MD Common Visit Codes: [id number] INP/OBS CARE(HIGH) SHAKA AL MD Jun 20, 2024 23:01
[2024-06-21] VITALS (8 sets, daily range): BP systolic 112–143; BP diastolic 49–86; PULSE 49–72; RESP 16–19; TEMP 98.1–99.1; O2SAT 95–98
[2024-06-21 10:05] LABS: Basophils # (auto) 0 10 ^3/uL (0-0.2); Basophils % (auto) 0.3 % (0.0-2.0); Chloride 106 mmol/L (98-107); Eosinophils # (auto) 0.1 10 ^3/uL (0-0.8); Hematocrit 44.2 % (41.0-53.0); Hemoglobin 14.7 g/dL (13.5-17.5); Lymphocytes # (auto) 1.5 10 ^3/uL (0.4-5.4); Lymphocytes % (auto) 19.1 % (10.0-50.0); Mean Corpuscular Hemoglobin 28.4 pg (28.0-32.0); Mean Corpuscular Hgb Conc. 33.1 g/dL (32.0-36.0); Mean Corpuscular Volume 85.7 fL (80.0-100.0); Monocytes # (auto) 0.7 10 ^3/uL (0-1.3); Monocytes % (auto) 8.7 % (0.0-12.0); Neutrophils # (auto) 5.5 10 ^3/uL (1.6-8.6); Neutrophils % (auto) 70.9 % (37.0-80.0); Nucleated Red Blood Cells % 0.1 %; Platelet Count (auto) 208 10^3/uL (140-450); Potassium 3.8 mmol/L (3.5-5.1); Red Blood Cells 5.15 10^6/uL (4.5-5.90); Red Cell Distribution Width 13.3 % (11.8-14.3); Sodium 143 mmol/L (136-145); White Blood Cell 7.8 10^3/uL (4.4-10.8)
[2024-06-21 10:06] LABS: Anion Gap 10 (5-15); Carbon Dioxide 27 mmol/L (20-31)
[2024-06-21 10:11] LABS: Blood Urea Nitrogen 11 mg/dL (9-23)
[2024-06-21 10:17] LABS: Glucose 127 mg/dL (74-106)
[2024-06-22] VITALS (7 sets, daily range): BP systolic 106–140; BP diastolic 67–95; PULSE 54–83; RESP 16–18; TEMP 97.8–98.4; O2SAT 97–100
--- NOTE | 2024-06-22 12:29 | DVHPN2 ---
Reviewed: Care Plan, H&P, Labs, Medications, Previous Orders, Radiology Changes from previous H/P or p: No Changes Gastrointestinal: Nausea, Vomiting, Abdominal Pain, Diarrhea, Other (Hematemesis) Objective Vitals Vital Signs Date Time Temp Pulse Resp B/P (MAP) Pulse Ox O2 Delivery O2 Flow Rate FiO2 06/22/24 09:00 97.8 75 16 122/74 (90) 98 97.8 06/22/24 08:00 Room Air* 0 21 Intake/Output Intake and Output 06/22/24 07:00 Intake Total 450 ml Balance 450 ml Intake Oral 250 ml IV Total 200 ml # Voids 3 General Appearance: Alert, Oriented X3, Cooperative, No acute distress HEENT: Atraumatic, PERRLA, EOMI, Mucous membr. moist/pink Neck: Supple Lungs: Clear to auscultation, Normal air movement Cardiovascular: Regular rate, Normal S1, Normal S2, No murmurs, Gallops, Rubs Abdomen: Normal bowel sounds, Soft, No tenderness Neuro: Cranial nerves 3-12 NL Psych/Mental Status: Mental status NL Medications Current Medications Medications Dose Ordered Sig/Caprice Route Start Time Stop Time Status Last Admin Dose Admin Sodium Chloride 1,000 ml @ 100 mls/hr Q10H IV 06/19/24 15:30 06/20/24 21:30 100 MLS/HR Piperacillin Sod/ Tazobactam Sod 100 ml @ 25 mls/hr Q8HR IV 06/19/24 22:00 06/22/24 05:31 25 MLS/HR Acetaminophen/ Hydrocodone Bitart 1 tab Q4HP PRN PO 06/19/24 15:30 Ondansetron HCl 4 mg Q4HP PRN IV 06/19/24 15:30 06/20/24 10:37 4 MG Acetaminophen 650 mg Q6HP PRN PO 06/19/24 15:30 Morphine Sulfate 2 mg Q4HPRN PRN IV 06/19/24 15:30 Albuterol 2.5 mg Q4HPRN PRN NEB 06/19/24 15:30 Cancel Ipratropium [place] 0.5 mg Q4HPRN PRN NEB 06/19/24 15:30 Cancel Pantoprazole Sodium 40 mg DAILY PO 06/20/24 10:00 06/22/24 10:01 40 MG Laboratory Results Laboratory Tests 06/21/24 09:38 Urinalysis Test 06/19/24 22:32 Urine Color Yellow (Yellow) Urine Clarity Clear (Clear) Urine pH 6.5 (5.0-9.0) Urine Specific [place] 1.032 (1.001-1.035) Urine Protein Trace (Negative) H Urine Ketones 3+ (Negative) H Urine Blood Negative /uL (Negative) Urine Nitrite Negative (Negative) Urine Bilirubin Negative (Negative) Urine Urobilinogen Normal mg/dL (Negative) Urine Leukocyte Esterase Negative /uL (Negative) Urine RBC 1 /hpf (0 - 3) Urine Microscopic WBC 1 /HPF (0-3) Urine Squamous Epithelial Cells None seen /hpf (<5) Urine Bacteria None seen /hpf (None Seen) Urine Glucose 1+ mg/dL (Normal) H Microbiology Microbiology Date/Time Source Procedure Growth Status 06/19/24 22:32 Voided Urine Urine Culture - Final Complete 06/19/24 16:14 Blood Blood Culture - Preliminary NO GROWTH AFTER 48 HOURS OF INCUBATION. Resulted Labs and/or images reviewed: Labs reviewed by me, Image(s) reviewed by me Assessment/Plan Assessment/Plan covering for Dr Hernández Intractable back pain Nausea vomiting Rule out GI bleed Hematemesis Hypokalemia Leukocytosis rule out sepsis Zosyn 1.0 cm cavitary right lower pulmonary nodule could be pneumonia. Hyperglycemia History of asthma Pt Recently immigrated from [facility] History of drug abuse Plan discussed with: Patient Date of Service: Jun 22, 2024 Billing Provider: MARK RAMIREZ MD Common Visit Codes: [id number] INP/OBS CARE(HIGH) MARK RAMIREZ MD Jun 22, 2024 12:29
[2024-06-23 01:00] VITALS: BP 102/75; PULSE 57; RESP 18; TEMP 98.1; O2SAT 96
[2024-06-23 05:00] VITALS: BP 122/80; PULSE 61; RESP 18; TEMP 97.6; O2SAT 96
[2024-06-23 05:08] LABS: QuantiFERON-TB Gold Plus Negative (Negative)
[2024-06-23 09:30] VITALS: BP 111/68; PULSE 65; RESP 16; TEMP 98.1; O2SAT 64; O2SAT 96
--- NOTE | 2024-06-23 09:55 | DVHPN2 ---
Reviewed: Care Plan, H&P, Labs, Medications, Previous Orders, Radiology Changes from previous H/P or p: No Changes Gastrointestinal: Nausea, Vomiting, Abdominal Pain, Diarrhea, Other (Hematemesis) Objective Vitals Vital Signs Date Time Temp Pulse Resp B/P (MAP) Pulse Ox O2 Delivery O2 Flow Rate FiO2 06/23/24 09:30 98.1 65 16 111/68 (82) 64 98.1 06/22/24 20:15 Room Air* 0 21 Intake/Output Intake and Output 06/23/24 07:00 Intake Total 3040 ml Balance 3040 ml Intake Oral 1760 ml IV Total 1280 ml # Voids 5 General Appearance: Alert, Oriented X3, Cooperative, No acute distress HEENT: Atraumatic, PERRLA, EOMI, Mucous membr. moist/pink Neck: Supple Lungs: Clear to auscultation, Normal air movement Cardiovascular: Regular rate, Normal S1, Normal S2, No murmurs, Gallops, Rubs Abdomen: Normal bowel sounds, Soft, No tenderness Neuro: Cranial nerves 3-12 NL Psych/Mental Status: Mental status NL Medications Current Medications Medications Dose Ordered Sig/Caprice Route Start Time Stop Time Status Last Admin Dose Admin Sodium Chloride 1,000 ml @ 100 mls/hr Q10H IV 06/19/24 15:30 06/23/24 06:17 100 MLS/HR Piperacillin Sod/ Tazobactam Sod 100 ml @ 25 mls/hr Q8HR IV 06/19/24 22:00 06/23/24 06:17 25 MLS/HR Acetaminophen/ Hydrocodone Bitart 1 tab Q4HP PRN PO 06/19/24 15:30 Ondansetron HCl 4 mg Q4HP PRN IV 06/19/24 15:30 06/20/24 10:37 4 MG Acetaminophen 650 mg Q6HP PRN PO 06/19/24 15:30 Morphine Sulfate 2 mg Q4HPRN PRN IV 06/19/24 15:30 Albuterol 2.5 mg Q4HPRN PRN NEB 06/19/24 15:30 Cancel Ipratropium [place] 0.5 mg Q4HPRN PRN NEB 06/19/24 15:30 Cancel Pantoprazole Sodium 40 mg DAILY PO 06/20/24 10:00 06/22/24 10:01 40 MG Laboratory Results Laboratory Tests 06/21/24 09:38 Urinalysis Test 06/19/24 22:32 Urine Color Yellow (Yellow) Urine Clarity Clear (Clear) Urine pH 6.5 (5.0-9.0) Urine Specific [place] 1.032 (1.001-1.035) Urine Protein Trace (Negative) H Urine Ketones 3+ (Negative) H Urine Blood Negative /uL (Negative) Urine Nitrite Negative (Negative) Urine Bilirubin Negative (Negative) Urine Urobilinogen Normal mg/dL (Negative) Urine Leukocyte Esterase Negative /uL (Negative) Urine RBC 1 /hpf (0 - 3) Urine Microscopic WBC 1 /HPF (0-3) Urine Squamous Epithelial Cells None seen /hpf (<5) Urine Bacteria None seen /hpf (None Seen) Urine Glucose 1+ mg/dL (Normal) H Microbiology Microbiology Date/Time Source Procedure Growth Status 06/19/24 22:32 Voided Urine Urine Culture - Final Complete 06/19/24 16:14 Blood Blood Culture - Preliminary NO GROWTH AFTER 72 HOURS OF INCUBATION. Resulted Labs and/or images reviewed: Labs reviewed by me, Image(s) reviewed by me Assessment/Plan Assessment/Plan covering for Dr Hernández Intractable back pain Nausea vomiting Rule out GI bleed Dr.GI Dr Yoo advised outpatient EGD Hematemesis Hypokalemia Leukocytosis rule out sepsis Zosyn 1.0 cm cavitary right lower pulmonary nodule could be pneumonia., consult for Dr. De La Cruz Hyperglycemia History of asthma Pt Recently immigrated from [facility] History of drug abuse: Counseling Plan discussed with: Patient My Orders Orders - MARK RAMIREZ MD Procedure Category Date Status Time *Consult CONS 06/22/24 Transmitted / 14:01 Date of Service: Jun 23, 2024 Billing Provider: MARK RAMIREZ MD Common Visit Codes: [id number] INP/OBS CARE(HIGH) MARK RAMIREZ MD Jun 23, 2024 09:55
[2024-06-23 13:25] VITALS: BP 131/84; PULSE 62; RESP 18; TEMP 98.1; O2SAT 99
--- NOTE | 2024-06-24 08:09 | DVHDS2 ---
Discharge Summary Date of Admission Jun 19, 2024 at 15:29 Date of Discharge: Jun 23, 2024 Admitting Diagnosis Nausea and vomiting Wounds: None Labs/Diagnostic Data: Laboratory Results Test 06/23/24 09:35 06/22/24 05:42 06/21/24 09:38 06/20/24 16:30 Stool Occult Blood Negative (Negative) Stool Occult Blood Sample #3 (Negative) POC Glucose 109 mg/dl (70-106) White Blood Count 7.8 10^3/uL (4.4-10.8) Red Blood Count 5.15 10^6/uL (4.5-5.90) Hemoglobin 14.7 g/dL (13.5-17.5) Hematocrit 44.2 % (41.0-53.0) Mean Corpuscular Volume 85.7 fL (80.0-100.0) Mean Corpuscular Hemoglobin 28.4 pg (28.0-32.0) Mean Corpuscular Hemoglobin Concent 33.1 g/dL (32.0-36.0) Red Cell Distribution Width 13.3 % (11.8-14.3) Platelet Count 208 10^3/uL (140-450) Mean Platelet Volume 9.4 fL (6.9-10.8) Neutrophils (%) (Auto) 70.9 % (37.0-80.0) Lymphocytes (%) (Auto) 19.1 % (10.0-50.0) Monocytes (%) (Auto) 8.7 % (0.0-12.0) Eosinophils (%) (Auto) 1.0 % (0.0-7.0) Basophils (%) (Auto) 0.3 % (0.0-2.0) Neutrophils # (Auto) 5.5 10 ^3/uL (1.6-8.6) Lymphocytes # (Auto) 1.5 10 ^3/uL (0.4-5.4) Monocytes # (Auto) 0.7 10 ^3/uL (0-1.3) Eosinophils # (Auto) 0.1 10 ^3/uL (0-0.8) Basophils # (Auto) 0 10 ^3/uL (0-0.2) Nucleated Red Blood Cells 0.1 % Sodium Level 143 mmol/L (136-145) Potassium Level 3.8 mmol/L (3.5-5.1) Chloride Level 106 mmol/L (98-107) Carbon Dioxide Level 27 mmol/L (20-31) Anion Gap 10 (5-15) Blood Urea Nitrogen 11 mg/dL (9-23) Creatinine 1.10 mg/dL (0.700-1.30) Glomerular Filtration Rate Calc 90 mL/min (>90) BUN/Creatinine Ratio 10.0 (10.0-20.0) Serum Glucose 127 mg/dL (74-106) Calcium Level 10.0 mg/dL (8.7-10.4) TB Test (QFT) Gold Plus Negative (Negative) TB Test (QFT) Nil 0.00 IU/mL (.) TB Test (QFT) Mitogen >10.00 IU/mL (.) TB Test (QFT) Antigen 1 0.00 IU/mL (.) TB Test (QFT) Antigen 2 0.00 IU/mL (.) TB Test (QFT) Criteria Comment (.) Test 06/20/24 06:51 06/19/24 22:32 06/19/24 16:14 06/19/24 08:52 Total Bilirubin 1.1 mg/dL (0.2-1.0) Aspartate Amino Transferase (AST) 22 U/L (13-40) Alanine Aminotransferase (ALT) 17 U/L (7-40) Alkaline Phosphatase 47 U/L (46-116) Total Protein 7.3 g/dL (5.7-8.2) Albumin 4.6 g/dL (3.2-4.8) Urine Color Yellow (Yellow) Urine Clarity Clear (Clear) Urine pH 6.5 (5.0-9.0) Urine Specific [place] 1.032 (1.001-1.035) Urine Protein Trace (Negative) Urine Ketones 3+ (Negative) Urine Blood Negative /uL (Negative) Urine Nitrite Negative (Negative) Urine Bilirubin Negative (Negative) Urine Urobilinogen Normal mg/dL (Negative) Urine Leukocyte Esterase Negative /uL (Negative) Urine RBC 1 /hpf (0 - 3) Urine Microscopic WBC 1 /HPF (0-3) Urine Squamous Epithelial Cells None seen /hpf (<5) Urine Bacteria None seen /hpf (None Seen) Urine Glucose 1+ mg/dL (Normal) Lactic Acid Level 1.4 mmol/L (0.4-2.0) Erythrocyte Sedimentation Rate 3 mm/hr (0-20) Hemoglobin A1c 5.2 % A1C (<5.7) Lipase 34 U/L (12-53) Other Laboratory Tests 06/21/24 09:38 Brief Hx & Hospital Course: 33-year-old male visiting from [facility] came in for back pain and nausea and vomiting. Seen by VILMA Yoo advised outpatient EGD. Patient had leukocytosis possible sepsis treated with the Zosyn history of asthma history of drug abuse and patient was counseled 1 cm cavitary right lower lobe nodule possible pneumonia. Seen by pulmonology. While awaiting further evaluation patient decided to leave AMA and left AMA. Consequences complications including possible explained to the patient and he verbalized understanding. At the time of leaving AMA patient's condition satisfactory Consults/Reason for consult GI Pulmonary Operations or Procedures CT abdomen pelvis without contrast Chest x-ray Condition at Discharge: Fair Final Diagnosis/Problems List Intractable back pain Nausea vomiting Rule out GI bleed Dr.GI Dr Yoo advised outpatient EGD Hematemesis Hypokalemia Leukocytosis rule out sepsis Zosyn 1.0 cm cavitary right lower pulmonary nodule could be pneumonia., consult for Dr. De La Cruz Hyperglycemia History of asthma Pt Recently immigrated from [facility] History of drug abuse: Counseling Discharge Disposition: AMA Discharge Instruct/Medications Diet comment: Not applicable Patient left AMA Activity comment: Not applicable Patient left AMA Follow Up/Referral: Not applicable Patient left AMA Medications: Not applicable Patient left AMA 39 (Time taken for discharge summary 39 minutes) Discharge Statement: "Patient was advised to return to the ER or call 911 if any headaches, dizziness, shortness of breath, chest pain, abdominal pain, bleeding, fevers, or worsening of medical condition. Patient was counseled about treatment plan, medications, possible side effects, patientverbalized understanding. All questions were answered to the best of my ability. This discharge took greater then 30 minutes in planning, reviewing documentation, counseling the patient, and discussing with other team members." ASSESSMENT ASSESSMENT Assessment Date of Service: Jun 24, 2024 Billing Provider: MARK RAMIREZ MD Common Visit Codes: 42923-SOR/OBS DISCH DAY >30min MARK RAMIREZ MD Jun 24, 2024 08:09
== END 2024-06-23 13:47 | disposition left against medical advice (07) | DRG 720 ==
LOC: ER 08:26 → OVERFLOW 15:29 → EAST 15:35 → WEST WING 22:11 → EAST 06-20 19:31
PROVIDERS: ADMIT Family Medicine; ATTEND Family Medicine
DX: A41.9 Sepsis, unspecified organism (principal); J12.9 Viral pneumonia, unspecified; K92.0 Hematemesis; E87.6 Hypokalemia; R73.9 Hyperglycemia, unspecified; J45.909 Unspecified asthma, uncomplicated; Z80.8 Family history of malignant neoplasm of other organs or systems; Z79.899 Other long term (current) drug therapy; Z53.29 Procedure and treatment not carried out because of patient's decision for other reasons
CPT/HCPCS: 36415; 71045; 74176; 80048; 80053; 81001; 82270; 82962; 83036; 83605; 83690; 85025; 85652; 87040; 87086; 96361; 96374; 96375; 99291; G0378; J2405; J2470; J2543